=== PATIENT | male | born 1975 | race Caucasian/White ===

== ENCOUNTER 2019-02-01 19:21 | Emergency (ER) | payer MEDICAID, OTHER ==
[2019-02-01 20:18] VITALS: RESP 18; TEMP 98.1; O2SAT 100; BMI 20.3
[2019-02-01] MEDS ORDERED: Lidocaine 5% Patch TD STA (20:57)
--- NOTE | 2019-02-01 23:03 | ED PDOC ---
Arrival/HPI - General Chief Complaint: Back Pain Time Seen by Provider: 02/01/19 20:20 Historian: Patient - History of Present Illness Narrative History of Present Illness (Text): 43 year old male with no significant past medical history presents to the emergency department complaining right thigh pain x 1 month. Patient states the pain is dull and worse with bearing weight and ambulating. Occasional radiation into the right side of his lower back. Has been taking ibuprofen for pain without relief. Patient saw his primary doctor yesterday prescribed meloxicam. Denies trauma, injury, numbness, weakness, paresthesias, saddle anesthesia, incontinence, urinary symptoms, testicular pain/swelling, skin changes, or any other associated symptoms. Past Medical History - Provider Review Nursing Documentation Reviewed: Yes - Infectious Disease Hx of Infectious Diseases: None - Psychiatric Hx Substance Use: No - Surgical History Hx Orthopedic Surgery: Yes (right lower leg sx) - Anesthesia Hx Anesthesia: Yes Hx Anesthesia Reactions: No Hx Malignant Hyperthermia: No Family/Social History - Physician Review Nursing Documentation Reviewed: Yes Family/Social History: No Known Family HX Smoking Status: Light Smoker < 10 Cigarettes Daily Hx Alcohol Use: No Hx Substance Use: No Allergies/Home Meds Allergies/Adverse Reactions: Allergies No Known Allergies Allergy (Verified 04/08/16 12:02) Review of Systems - Review of Systems Constitutional: Normal. absent: Fevers ENT: Normal Respiratory: Normal. absent: SOB Cardiovascular: Normal. absent: Chest Pain Gastrointestinal: Normal. absent: Abdominal Pain, Nausea, Vomiting Musculoskeletal: Back Pain, Other (right leg pain). absent: Neck Pain Skin: Normal. absent: Rash, Skin Lesions Neurological: Normal. absent: Headache, Dizziness Physical Exam Vital Signs Reviewed: Yes Vital Signs Temp Pulse Resp BP Pulse Ox 02/01/19 20:17 98.1 F 62 18 116/69 100 Temperature: Afebrile Blood Pressure: Normal Pulse: Regular Respiratory Rate: Normal Appearance: Positive for: Well-Appearing, Non-Toxic, Comfortable Pain Distress: None Mental Status: Positive for: Alert and Oriented X 3 - Systems Exam Head: Present: Atraumatic, Normocephalic Pupils: Present: PERRL Extroacular Muscles: Present: EOMI Conjunctiva: Present: Normal Mouth: Present: Moist Mucous Membranes Neck: Present: Normal Range of Motion Respiratory/Chest: Present: Clear to Auscultation, Good Air Exchange. No: Respiratory Distress, Accessory Muscle Use Cardiovascular: Present: Regular Rate and Rhythm, Normal S1, S2, Peripheal Pulses Present Abdomen: No: Tenderness Back: Present: Normal Inspection, Paraspinal Tenderness (right lumbar) Upper Extremity: Present: Normal Inspection, Normal ROM Lower Extremity: Present: Normal Inspection, NORMAL PULSES, Normal ROM, Tenderness (right medial thigh ), Neurovascularly Intact, Capillary Refill < 2 s. No: Swelling, Temperature Abnormalties Neurological: Present: GCS=15, CN II-XII Intact, Speech Normal, Motor Func Grossly Intact, Normal Sensory Function, Gait Normal Skin: Present: Warm, Dry, Normal Color. No: Rashes Psychiatric: Present: Alert, Oriented x 3, Normal Insight, Normal Concentration Medical Decision Making ED Course and Treatment: Initial Plan: * Right Hip XR * Right venous duplex * Tylenol * Lidoderm patch Right venous duplex negative from prelim read Right hip Xray read as negative by me Patient reports significant improvement in pain with medications Advised PMD and orthopedic followup Diagnostic testing results and plan of care discussed with patient. Strict instructions given regarding prescription use, importance of followup, and signs/symptoms to return to ER including worsening pain, numbness, weakness, paresthesas or any other new/worsening symptoms. Pt verbalized understanding of discussion. Patient is A&Ox3, ambulating with steady gait, with vital signs stable for discharge. - RAD Interpretation Radiology Orders: 02/01/19 20:36 DUPLEX LOWER EXTRM VEIN RIGHT [US] Stat 02/01/19 21:00 Hip Right [HIP MIN 2V W/ PELVIS RT] [RAD] Stat - Medication Orders Current Medication Orders: Discontinued Medications Acetaminophen (Tylenol 325mg Tab) 975 mg PO STAT STA Stop: 02/01/19 20:57 Last Admin: 02/01/19 21:15 Dose: 975 mg MAR Pain/Vitals Document 02/01/19 21:15 AD (Rec: 02/01/19 22:17 AD [id number]) Pain Reassessment Is This A Pain ReAssessment? No Presence of Pain Presence of Pain Yes Pain Scale Used Protocol: PSCALES Pain Scale Used Numeric Location Intensity 8 Pain Behavior Facial Grimacing Lidocaine (Lidoderm) 1 ea TD STAT STA Stop: 02/01/19 20:58 Last Admin: 02/01/19 21:15 Dose: 1 ea MAR Transdermal Patch Site Document 02/01/19 21:15 AD (Rec: 02/01/19 22:17 AD [id number]) Transdermal Patch Site Transdermal Patch Site Right Lower Back Disposition/Present on Arrival - Present on Arrival Any Indicators Present on Arrival: No History of DVT/PE: No History of Uncontrolled Diabetes: No Urinary Catheter: No History of Decub. Ulcer: No History Surgical Site Infection Following: None - Disposition Have Diagnosis and Disposition been Completed?: Yes Diagnosis: Leg pain Disposition: HOME/ ROUTINE Disposition Time: 22:50 Patient Plan: Discharge Condition: IMPROVED Discharge Instructions (ExitCare): Muscle and Bone Pain (DC) Additional Instructions: Continue home medications Lidoderm patches daily 12 hours on, 12 hours off Followup with orthopedic doctor within 2 days Followup with primary doctor within 2 days Return to ER with any new/worsening symptoms Prescriptions: Lidocaine 5% [Lidoderm] 1 ea TD DAILY PRN #30 patch PRN Reason: Pain, Mild (1-3) Referrals: Castro Samaniego MD [Staff Provider] - Follow up with primary Kaylyn Daniels MD [Primary Care Provider] - Follow up with primary Forms: [employer] (Romansh), WORK NOTE
[2019-02-02 00:19] VITALS: BP 122/63; PULSE 70
--- NOTE | 2019-02-02 09:29 | US ---
PROCEDURE: Right lower extremity venous US HISTORY: Leg pain and swelling. Evaluate for DVT. PHYSICIAN(S): Steve Marx M.D. TECHNIQUE: Duplex sonography and color-flow Doppler with graded compression were used to evaluate the deep venous system of the right lower extremity. FINDINGS: The visualized deep venous system of the right lower extremity is sonographically normal and compressible. Normal waveforms and augmentation are seen. There is no sonographic evidence for deep venous thrombosis in the visualized segments of the right lower extremity. IMPRESSION: 1. No sonographic evidence for deep venous thrombosis in the visualized segments of the right lower extremity.
--- NOTE | 2019-02-02 10:35 | RAD ---
Date of service: 02/01/2019 PROCEDURE: HISTORY: right hip and leg pain COMPARISON: None TECHNIQUE: AP pelvis and frog's leg view. FINDINGS: No fracture or lytic lesion. No dislocation. Bilateral superolateral hip joint space narrowing. SI and pubic symphyseal joints unremarkable appearing. IMPRESSION: Minimal superolateral hip joint space narrowing-no fracture lesion.
== END 2019-02-01 23:16 | disposition home or self-care (01) ==
LOC: ED 19:21
DX: M79.604 Pain in right leg (principal)